=== PATIENT | female | born 1950 | race Two or more races ===

== ENCOUNTER 2017-12-12 11:26 | Inpatient (IN) | payer SELFPAY ==
[2017-12-12] VITALS (10 sets, daily range): BP systolic 111–123; BP diastolic 49–65
[~2017-12-12] VITALS: Ht 154.9 cm; Wt 62.1 kg
[2017-12-12] MEDS ORDERED: Cefepime HCl 1 GM in NS 55 ML IV STA (11:33)
[2017-12-12] MEDS ORDERED: CEPHALEXIN500 MG ORAL (11:41)
[2017-12-12] MEDS ORDERED: LISINOPRIL20 MG ORAL (11:41)
[2017-12-12] MEDS ORDERED: NORCO 5-325 TA1 EACH ORAL (11:41)
[2017-12-12] MEDS ORDERED: Vancomycin 1 GM in D5W 275 ML IVPB ONE (11:45)
[2017-12-12] MEDS ORDERED: Morphine Sulfate 4mg/ml Inj (IV/IM USE ONLY) IVP ONE (11:45)
[2017-12-12 12:14] LABS: BASOPHILS % (AUTO) 0.6 % (0.0-2.0); EOSINOPHILS % (AUTO) 1.1 % (0.0-3.0); HEMATOCRIT 38.1 % (37.0-47.0); HEMOGLOBIN 12.6 G/DL (12.0-16.0); LYMPHOCYTES % (AUTO) 15.2 % (20.0-45.0); MEAN CORPUSCULAR VOLUME 94 FL (80-99); MONOCYTES % (AUTO) 6.1 % (1.0-10.0); PLATELET COUNT 223 K/UL (150-450); RED BLOOD COUNT 4.06 M/UL (4.20-5.40); RED CELL DISTRIBUTION WIDTH 11.4 % (11.6-14.8); WHITE BLOOD COUNT 10.3 K/UL (4.8-10.8)
[2017-12-12] MEDS ORDERED: Succinylcholine 20mg/ml 10ml vial ONE (12:40)
[2017-12-12] MEDS ORDERED: fentaNYL 100 mcg/2 mL IV ONE (12:41)
[2017-12-12 12:42] LABS: ALANINE AMINOTRANSFERASE 188 U/L (12-78); ALBUMIN 3.4 G/DL (3.4-5.0); ALBUMIN/GLOBULIN RATIO 0.9 (1.0-2.7); ALKALINE PHOSPHATASE 129 U/L (46-116); ANION GAP 4 mmol/L (5-15); ASPARTATE AMINO TRANSFERASE 121 U/L (15-37); BILIRUBIN,TOTAL 1.7 MG/DL (0.2-1.0); BLOOD UREA NITROGEN 6 mg/dL (7-18); CALCIUM 8.9 MG/DL (8.5-10.1); CARBON DIOXIDE 30 MMOL/L (21-32); CHLORIDE 102 MMOL/L (98-107); CREATINE KINASE 420 U/L (26-308); CREATININE 0.7 MG/DL (0.55-1.30); POTASSIUM 4.3 MMOL/L (3.5-5.1); SODIUM 136 MMOL/L (136-145)
[2017-12-12 12:43] LABS: BILIRUBIN,DIRECT 0.3 MG/DL (0.0-0.3)
[2017-12-12] MEDS ORDERED: Lidocaine 1% 10mg/ml/Epi 0.005mg/ml 30ml vial INJ ONE (12:47)
[2017-12-12] MEDS ORDERED: Bacitracin 50000 Units Vial ONE (12:47)
[2017-12-12] MEDS ORDERED: Bacitracin Oint 15gm Tube TOPIC ONE (12:47)
--- NOTE | 2017-12-12 12:47 | Diagnostic Imaging Report ---
EXAM: XR Chest, 1 View CLINICAL HISTORY: Chest pain TECHNIQUE: Frontal view of the chest. COMPARISON: No relevant prior studies available. FINDINGS: Lungs: Low lung volumes, likely related to shallow inspiration. Mild linear/subsegmental atelectasis in the left lung base. The lungs otherwise appear clear without focal consolidation. Pleural space: Unremarkable. The costophrenic angles are sharp. No visible pneumothorax. Heart: Unremarkable. No cardiomegaly. Mediastinum: Unremarkable. Bones/joints: Unremarkable. Soft tissues: Radiodense safety pin overlies the soft tissues of the lateral left chest wall. Tubes, lines and devices: EKG leads overlie the thorax. IMPRESSION: 1. Low lung volumes, likely related to shallow inspiration. 2. Mild linear/subsegmental atelectasis in the left lung base.
[2017-12-12] MEDS ORDERED: Lacri-Lube Opth Oint 3.5gm ONE (13:32)
[2017-12-12] MEDS ORDERED: Gelfoam Absorbable 1gm powder pkt TOPIC ONE (13:52)
[2017-12-12] MEDS ORDERED: Thrombin 5000 units spray kit TOPIC ONE (13:52)
[2017-12-12] MEDS ORDERED: Lidocaine 1% MPF 10mg/ml 5ml ONE (14:07)
[2017-12-12] MEDS ORDERED: Phenylephrine 10mg/ml Vial ONE (14:07)
[2017-12-12] MEDS ORDERED: Zemuron 50mg/5ml Inj IV ONE (14:07)
[2017-12-12] MEDS ORDERED: Propofol 200mg/20ml IV ONE (14:07)
[2017-12-12] MEDS ORDERED: Metoclopramide 10mg/2ml Inj ONE (14:07)
[2017-12-12] MEDS ORDERED: Morphine Sulfate 10mg/ml Inj ONE (14:14)
[2017-12-12] MEDS ORDERED: Sterile Water For Irrig 2000ml IRRIG ONE (14:28)
--- NOTE | 2017-12-12 14:43 | Anethesia Preoperative Eval ---
Anesthesia Pre-op PMH/ROS General Date of Evaluation: Dec 12, 2017 Time of Evaluation: 12:30 - spoke with daughter Leann who translated the possible anesthetic related complication and possible ICU admission Anesthesiologist: flor ASA Score: ASA 3 Mallampati Score Class I : Soft palate, uvula, fauces, pillars visible Class II: Soft palate, uvula, fauces visible Class III: Soft palate, base of uvula visible Class IV: Only hard plate visible Mallampati Classification: Class IV Surgeon: dorie Diagnosis: hematoma of face and neck Surgical Procedure: evacuation of face and neck Anesthesia History: none Family History: no anesthesia problems Allergies: Coded Allergies: No Known Allergies (Unverified , 12/12/17) Medications: see eMAR Patient NPO?: No NPO Date: Dec 12, 2017 NPO Time: 09:00 Past Medical History Cardiovascular: Reports: HTN; Denies: CAD, UT, valve dz, arrhythmia, other Pulmonary: Denies: asthma, COPD, QIANA, other Gastrointestinal/Genitourinary: Denies: GERD, CRI, ESRD, other Neurologic/Psychiatric: Denies: dementia, CVA, depression/anxiety, TIA, other Endocrine: Denies: DM, hypothyroidism, steroids, other HEENT: Denies: cataract (L), cataract (R), glaucoma, C[place]BA (L), C[place]BA (R), other Hematology/Immune: Denies: anemia, DVT, bleeding disorder, other Musculoskeletal/Integumentary: Denies: OA, RA, DJD, DDD, edema, other PSxH Narrative: cosmetic procedure done 11/10/17 s/p swelling to neck and face; Anesthesia Pre-op Phys. Exam Physician Exam Last Vital Signs Date Time Temp Pulse Resp B/P (MAP) Pulse Ox O2 Delivery O2 Flow Rate FiO2 12/12/17 12:30 98.0 78 18 124/78 100 Room Air Constitutional: other - excruciating pain; difficulting breathing when lying flat Neurologic: CN 2-12 intact Cardiovascular: RRR Respiratory: CTA Gastrointestinal: S/NT/ND Airway Exam Mallampati Classification can not access; limited mouth opening Mallampati Score: Class III MO: limited Neck: thick TMD: 1fb ROM: limited Dentures: no upper, no lower Anesthesia Pre-op A/P Labs Hematology Test 12/12/17 11:50 White Blood Count 10.3 K/UL (4.8-10.8) Red Blood Count 4.06 M/UL (4.20-5.40) L Hemoglobin 12.6 G/DL (12.0-16.0) Hematocrit 38.1 % (37.0-47.0) Mean Corpuscular Volume 94 FL (80-99) Mean Corpuscular Hemoglobin 31.1 PG (27.0-31.0) H Mean Corpuscular Hemoglobin Concent 33.2 G/DL (32.0-36.0) Red Cell Distribution Width 11.4 % (11.6-14.8) L Platelet Count 223 K/UL (150-450) Mean Platelet Volume 8.4 FL (6.5-10.1) Neutrophils (%) (Auto) 77.0 % (45.0-75.0) H Lymphocytes (%) (Auto) 15.2 % (20.0-45.0) L Monocytes (%) (Auto) 6.1 % (1.0-10.0) Eosinophils (%) (Auto) 1.1 % (0.0-3.0) Basophils (%) (Auto) 0.6 % (0.0-2.0) Coagulation Test 12/12/17 11:50 Prothrombin Time 10.2 SEC (9.30-11.50) Prothromb Time International Ratio 1.0 (0.9-1.1) Activated Partial Thromboplast Time 24 SEC (23-33) Chemistry Test 12/12/17 11:50 Sodium Level 136 MMOL/L (136-145) Potassium Level 4.3 MMOL/L (3.5-5.1) Chloride Level 102 MMOL/L (98-107) Carbon Dioxide Level 30 MMOL/L (21-32) Anion Gap 4 mmol/L (5-15) L Blood Urea Nitrogen 6 mg/dL (7-18) L Creatinine 0.7 MG/DL (0.55-1.30) Estimat Glomerular Filtration Rate > 60 mL/min (>60) Glucose Level 115 MG/DL (74-106) H Lactic Acid Level 2.00 mmol/L (0.4-2.0) Calcium Level 8.9 MG/DL (8.5-10.1) Total Bilirubin 1.7 MG/DL (0.2-1.0) H Direct Bilirubin 0.3 MG/DL (0.0-0.3) Aspartate Amino Transf (AST/SGOT) 121 U/L (15-37) H Alanine Aminotransferase (ALT/SGPT) 188 U/L (12-78) H Alkaline Phosphatase 129 U/L (46-116) H Total Creatine Kinase 420 U/L (26-308) H Troponin I 0.000 ng/mL (0.000-0.056) Pro-B-Type Natriuretic Peptide 66 pg/mL (0-125) Total Protein 7.1 G/DL (6.4-8.2) Albumin 3.4 G/DL (3.4-5.0) Globulin 3.7 g/dL Albumin/Globulin Ratio 0.9 (1.0-2.7) L Studies Pre-op Studies: EKG - sr Risk Assessment & Plan Assessment: accompanied with daughter, pt is cannot open mouth, left eye is shut from swelling. facial and neck swelling noted. Plan: general - glidescope - will remain intubated post surgery Status Change Before Surgery: No Pre-Antibiotics Drug: ancef Given Within 1 Hr of Incision: Yes Time Given: 13:50 Dimple Johnson CRNA Dec 12, 2017 14:43
--- NOTE | 2017-12-12 15:07 | Emergency Room Report ---
History of Present Illness General Chief Complaint: General Complaint Source: Patient, Family Member Present Illness HPI Patient presents with facial swelling, fevers and drainage of pus from the drainage tubes. She had reconstructive surgery done yesterday. She's felt feverish. She also feels nauseated. The pain is significant - rated 10/10, sharp, pressure, some radiation to upper neck anteriorly. She'd followed-up with her surgeon today and he sent her to the emergency department in order to have a revision and drainage. The patient's tetanus is up-to-date. No dysuria, chest pain, cough, vomiting or diarrhea. Post menopausal. No joint pain. Denies DM or HTN. Allergies: Coded Allergies: No Known Allergies (Unverified , 12/12/17) Patient History Past Medical History: see triage record Past Surgical History: other - breast implants Social History: Denies: smoking Social History Narrative with daughter Now: No Reviewed Nursing Documentation: PMH: Agreed; PSxH: Agreed Nursing Documentation-PMH Hx Cardiac Problems: Yes - breast implants, face lift Hx Hypertension: Yes Physical Exam Vital Signs Date Time Temp Pulse Resp B/P (MAP) Pulse Ox O2 Delivery O2 Flow Rate FiO2 12/12/17 11:36 98.1 82 12 122/65 99 Room Air Sp02 EP Interpretation: reviewed, normal General Appearance: alert, GCS 15, mild distress Head: other - post surgical changes face with swelling more on L Eyes: bilateral eye PERRL, bilateral eye EOMI, bilateral eye Scleral Injection , bilateral eye other - scleral ecchymoses ENT: moist mucus membranes, other - drainage tubes bilat face Neck: tender - anteriorly, but able to nod Respiratory: chest non-tender, lungs clear, normal breath sounds Cardiovascular #1: regular rate, rhythm Cardiovascular #2: 2+ radial (L) Gastrointestinal: normal inspection, normal bowel sounds, non tender Genitourinary: no CVA tenderness Musculoskeletal: back normal, digits/nails normal, gait/station normal, normal range of motion Neurologic: alert, oriented x3, grossly normal - though facial nerves not tested Psychiatric: depressed affect Skin: hematoma - ecchymoses, erythema face and neck Medical Decision Making Diagnostic Impression: Primary Impression: Post-operative infection Qualified Codes: T81.4XXA - Infection following a procedure, initial encounter ER Course Patient post facial surgery with fever and drainage with facial swelling. DDx; infection, hematoma amongst others. Sent by surgeon for revision of operation. Lab evaluation and EKG with CXR. IV hydration and analgesia. Also antibiotics indicated. Improved with analgesia. EKG no injury. CXR some atelectasis. Labs with normal WBC, H/H. CMP with elevated LFTs. Patient admitted to Dr. Bejarano and taken to OR. Laboratory Tests Test 12/12/17 11:50 White Blood Count 10.3 K/UL (4.8-10.8) Red Blood Count 4.06 M/UL (4.20-5.40) L Hemoglobin 12.6 G/DL (12.0-16.0) Hematocrit 38.1 % (37.0-47.0) Mean Corpuscular Volume 94 FL (80-99) Mean Corpuscular Hemoglobin 31.1 PG (27.0-31.0) H Mean Corpuscular Hemoglobin Concent 33.2 G/DL (32.0-36.0) Red Cell Distribution Width 11.4 % (11.6-14.8) L Platelet Count 223 K/UL (150-450) Mean Platelet Volume 8.4 FL (6.5-10.1) Neutrophils (%) (Auto) 77.0 % (45.0-75.0) H Lymphocytes (%) (Auto) 15.2 % (20.0-45.0) L Monocytes (%) (Auto) 6.1 % (1.0-10.0) Eosinophils (%) (Auto) 1.1 % (0.0-3.0) Basophils (%) (Auto) 0.6 % (0.0-2.0) Prothrombin Time 10.2 SEC (9.30-11.50) Prothrombin Time INR 1.0 (0.9-1.1) PTT 24 SEC (23-33) Sodium Level 136 MMOL/L (136-145) Potassium Level 4.3 MMOL/L (3.5-5.1) Chloride Level 102 MMOL/L (98-107) Carbon Dioxide Level 30 MMOL/L (21-32) Anion Gap 4 mmol/L (5-15) L Blood Urea Nitrogen 6 mg/dL (7-18) L Creatinine 0.7 MG/DL (0.55-1.30) Estimate Glomerular Filtration Rate > 60 mL/min (>60) Glucose Level 115 MG/DL (74-106) H Lactic Acid Level 2.00 mmol/L (0.4-2.0) Calcium Level 8.9 MG/DL (8.5-10.1) Total Bilirubin 1.7 MG/DL (0.2-1.0) H Direct Bilirubin 0.3 MG/DL (0.0-0.3) Aspartate Amino Transferase (AST) 121 U/L (15-37) H Alanine Aminotransferase (ALT) 188 U/L (12-78) H Alkaline Phosphatase 129 U/L (46-116) H Total Creatine Kinase 420 U/L (26-308) H Troponin I 0.000 ng/mL (0.000-0.056) Pro-B-Type Natriuretic Peptide 66 pg/mL (0-125) Total Protein 7.1 G/DL (6.4-8.2) Albumin 3.4 G/DL (3.4-5.0) Globulin 3.7 g/dL Albumin/Globulin Ratio 0.9 (1.0-2.7) L EKG Diagnostic Results Rate: normal Rhythm: NSR ST Segments: no acute changes Rhythm Strip Diag. Results EP Interpretation: yes Rhythm: NSR, no PVC's, no ectopy Chest X-Ray Diagnostic Results Chest X-Ray Diagnostic Results : Chest X-Ray Ordered: Yes Indication: Other EP Interpretation: Yes Interpretation: no effusion, no pneumothorax, other - atelectasis Last Vital Signs Date Time Temp Pulse Resp B/P (MAP) Pulse Ox O2 Delivery O2 Flow Rate FiO2 18 12:30 98.0 78 18 124/78 100 Room Air Status: improved Disposition: ADMITTED INPATIENT Condition: Serious Referrals: NON PHYSICIAN (PCP) Jeison Phillips MD Dec 12, 2017 15:07
[2017-12-12] MEDS ORDERED: Hydromorphone 0.5mg/0.5ml inj IVP PRN (15:45)
[2017-12-12] MEDS ORDERED: HYDROmorphone 1mg/ml Carpuject IVP PRN (15:45)
[2017-12-12] MEDS ORDERED: Acetaminophen 650 MG SUPP RECTAL PRN (15:45)
--- NOTE | 2017-12-12 15:49 | Immediate Post-Op Evaluation ---
Immediate Post-Op Evalulation Immediate Post-Op Evalulation Procedure: evac of neck and face Date of Evaluation: Dec 12, 2017 Time of Evaluation: 15:45 IV Fluids: 600 Blood Products: 0 Estimated Blood Loss: 200 Urinary Output: 500 Blood Pressure Systolic: 113 Blood Pressure Diastolic: 61 Pulse Rate: 76 Respiratory Rate: 12 O2 Sat by Pulse Oximetry: 100 - 9 Temperature (Fahrenheit): 97.9 Nausea: No Vomiting: No Complications none Patient Status: ventilated - SIMV 50% 12 500 sating 100% Hydration Status: adequate Drug: ancef Given Within 1 Hr of Incision: Yes Time Given: 13:00 Dimple Johnson CRNA Dec 12, 2017 15:49
[2017-12-12] MEDS: LR 1000ml 1,000 ML IV SCH (16:49)
[2017-12-12] MEDS: ceFAZolin 2gm/50ml Premix 50 ML IV SCH (21:57)
[2017-12-13] VITALS (20 sets, daily range): BP systolic 92–114; BP diastolic 48–60
--- NOTE | 2017-12-13 03:30 | Operative Note - Dictated ---
DATE OF OPERATION: 12/12/2017 SURGEON: Jeison Henley M.D. PIPE COVERING MOLDER SURGEON: None. PREOPERATIVE DIAGNOSIS: Status post face-lift with current face and neck hematoma. POSTOPERATIVE DIAGNOSIS: Status post face-lift with current face and neck hematoma. OPERATION PERFORMED: Evacuation and irrigation of facial and neck hematoma. COMPLICATIONS: None. BLOOD LOSS: Approximately 150 mL of clotted blood. POSITION: Supine. ANESTHESIA: General. INDICATIONS: The patient was brought in yesterday in the outpatient surgical center for facial laxity, underwent face and neck lift, which was complicated by bleeding starting approximately 4 a.m. this morning. The patient was brought to [facility] for surgical evacuation of hematoma and control of bleeding. DESCRIPTION OF PROCEDURE: The patient was consented and brought to the operating room, underwent an orotracheal intubation. Face was prepped and draped in usual sterile fashion again by opening up the previous submental incision as well as bilateral auricular incisions. Once I opened, clotted blood was found within the subcutaneous face. This was extensively evacuated with both sterile water and saline solution. Following evacuation, there were 1 or 2 areas of venous bleeding that was noted and 1 area of a very small arterial bleeding near the left preauricular space. These were all controlled using Bovie cautery and then monitored for further bleeding, which was not seen. Following evacuation and irrigation, Tisseel solution was used to enhance bleeding control. At this point, the previous MADONNA drains were removed and two 15-[place] round MADONNA drains were placed each exiting postauricular and lying in the cheek and submental space. The face was then closed previously with 3-0 PDS suture, subcutaneous area 5-0 interrupted, 3-0 Monocryl in the deep dermal layer followed by running 6-0 nylon. The submental incision was closed using 3-0 interrupted Monocryl followed by running 6-0 nylon. At the end of the procedure, sponge and needle counts were correct x2. The patient was left intubated and transferred to the intensive care unit for overnight monitoring. Jeison Henley M.D. DR: KYAW JOB#: [id number] CC:
[2017-12-13] MEDS: LR 1000ml 1,000 ML IV SCH ×2 (05:00→17:39)
[2017-12-13] MEDS: ceFAZolin 2gm/50ml Premix 50 ML IV SCH ×3 (06:00→21:53)
[2017-12-13 06:06] LABS: ANION GAP 4 mmol/L (5-15); BLOOD UREA NITROGEN 9 mg/dL (7-18); CALCIUM 7.7 MG/DL (8.5-10.1); CARBON DIOXIDE 28 MMOL/L (21-32); CHLORIDE 104 MMOL/L (98-107); CREATININE 0.6 MG/DL (0.55-1.30); POTASSIUM 4.1 MMOL/L (3.5-5.1); SODIUM 136 MMOL/L (136-145)
[2017-12-13] MEDS ORDERED: Lisinopril 20mg tab ORAL SCH (09:00)
--- NOTE | 2017-12-13 09:54 | Pulmonolgy Critical Care Note ---
Critical Care - Asmt/Plan Problems: (1) Postoperative hematoma (2) Facial hematoma (3) Fever Respiratory: monitor respiratory rate, adjust FIO2 Cardiac: stop pressors, continue to monitor HR/BP Infectious Disease: check cultures, continue antibiotics Gastrointestinal: hold feedings Endocrine: monitor blood sugar Neurologic: PRN Ativan, keep patient comfortable Affect: PRN ativan Prophylaxis: Heparin Time Spent (Minutes): 40 Notes Reviewed: outside sales inspector Discussed with: nurses, consultants, employment case managerclassified advertising manager - Objective Last 24 Hour Vital Signs Date Time Temp Pulse Resp B/P (MAP) Pulse Ox O2 Delivery O2 Flow Rate FiO2 12/13/17 09:11 99.9 12/13/17 09:09 96 17 28 12/13/17 09:05 Nasal Cannula 2.0 28 12/13/17 09:05 109 29 28 12/13/17 09:00 77 14 114/56 (75) 99 12/13/17 08:55 83 14 30 12/13/17 08:39 112/56 12/13/17 08:00 30 12/13/17 08:00 Mechanical Ventilator 12/13/17 08:00 119 12/13/17 08:00 77 12 112/56 (74) 98 12/13/17 07:00 100.2 82 12 111/55 (73) 98 12/13/17 06:50 86 12 30 12/13/17 06:00 75 12 112/58 (76) 98 12/13/17 05:29 78 14 30 12/13/17 05:00 79 12 108/58 (75) 98 12/13/17 04:00 77 12/13/17 04:00 Mechanical Ventilator 12/13/17 04:00 30 12/13/17 04:00 99.2 79 12 100/52 (68) 98 12/13/17 03:00 79 12 94/52 (66) 98 12/13/17 02:30 81 12 30 12/13/17 02:00 82 12 95/52 (66) 98 12/13/17 01:29 83 12 30 12/13/17 01:00 87 12 95/57 (70) 98 12/13/17 00:00 85 12/13/17 00:00 Mechanical Ventilator 12/13/17 00:00 30 12/13/17 00:00 98.8 77 13 113/57 (75) 99 12/12/17 23:20 82 14 30 12/12/17 23:00 82 13 118/59 (78) 100 12/12/17 22:00 82 13 121/59 (79) 100 12/12/17 21:11 78 12 40 12/12/17 21:00 81 13 111/60 (77) 100 12/12/17 20:00 Mechanical Ventilator 12/12/17 20:00 40 12/12/17 20:00 99.0 83 13 120/64 (82) 100 12/12/17 19:34 82 12 40 12/12/17 19:00 81 12 123/63 (83) 100 12/12/17 18:00 77 12 113/65 (81) 100 12/12/17 17:00 73 12 114/60 (78) 100 12/12/17 16:30 76 12 50 12/12/17 16:14 72 12/12/17 16:00 Endotracheal Tube 12/12/17 16:00 73 13 117/49 (71) 100 12/12/17 15:49 76 12 100 12/12/17 15:44 75 12/12/17 15:40 97.9 74 13 113/61 (78) 100 12/12/17 15:40 50 12/12/17 12:30 98.0 78 18 124/78 100 Room Air 12/12/17 11:42 98.1 74 12 122/65 99 Room Air 12/12/17 11:42 82 12 Room Air 12/12/17 11:36 98.1 82 12 122/65 99 Room Air Status: awake Condition: critical HEENT: atraumatic Lungs: clear Heart: HR/BP stable Abdomen: soft, active bowel sounds Extremities: no C/C/E, edema Decubiti: location Critical Care - Subjective ROS Limited/Unobtainable: Yes ICU Day: 2 Interval Events: 67 year old female without any major PMHx presented to ER with facial swelling , fevers and drainage of pus from the drainage tubes. She had reconstructive surgery done one day earlier. She's felt feverish. She was diagnosed to have a facial hematoma and underwent surgical evacuation of hematoma. Pt is admitted to ICU for post op care. Condition: critical FI02: 28 Vent Support Breath Rate: 12 Vent Support Mode: IMV/SIMV Vent Tidal Volume: 500 Sputum Amount: Small PEEP: 0.0 PIP: 21 I&O: Intake and Output 12/12/17 12/13/17 19:00 07:00 Intake Total 167 ml 925 ml Output Total 350 ml 940 ml Balance -183 ml -15 ml Intake Oral 0 ml IV Total 167 ml 925 ml Output Urine Total 330 ml 920 ml Drainage Total 20 ml 20 ml ET-Tube: 6.5 ET Position: 23 Patel Lagunas MD Dec 13, 2017 09:54
--- NOTE | 2017-12-13 10:34 | 48 Hour Post Anesthesia Eval ---
Post Anesthesia Evaluation Procedure: evac of neck and face Date of Evaluation: Dec 13, 2017 Time of Evaluation: 10:32 Blood Pressure Systolic: 101 0: 50 Pulse Rate: 70 Respiratory Rate: 14 O2 Sat by Pulse Oximetry: 98 Airway: patent - extubated and vitals stable Nausea: No Vomiting: No Hydration Status: adequate Cardiopulmonary Status: stable Mental Status/LOC: patient returned to baseline Follow-up Care/Observations: na Post-Anesthesia Complications: none Follow-up care needed: N/A Dimple Johnson CHIEF JUVENILE PROBATION OFFICER Dec 13, 2017 10:34
--- NOTE | 2017-12-13 11:02 | Consultation ---
Consult Note Consult Note # [id number] Hayes Seaman MD Dec 13, 2017 11:02
--- NOTE | 2017-12-13 12:04 | General Progress Note ---
Assessment/Plan Status Narrative s/p evacuation of face and neck hematoms- extubated this AM. awake and alert Assessment/Plan transfer to med/surg floor. continu ancef start diet- adv as tolerates HL IV once tolerating PO's keep HOB> 30 degreesa ambulate TID Incentive spirometer 10/hr Subjective Date patient seen: Dec 13, 2017 Time patient seen: 12:00 ROS Limited/Unobtainable: No Constitutional: Denies: no symptoms, chills, diaphoresis, fever, malaise, weakness, other HEENT: Denies: no symptoms, eye pain, blurred vision, tearing, double vision, ear pain, ear discharge, nose pain, nose congestion, throat pain, throat swelling, mouth pain, mouth swelling, other Cardiovascular: Denies: no symptoms, chest pain, edema, irregular heart rate, lightheadedness, palpitations, syncope, other Respiratory: Denies: no symptoms, cough, orthopnea, shortness of breath, SOB with excertion, SOB at rest, sputum, stridor, wheezing, other Gastrointestinal/Abdominal: Denies: no symptoms, abdomen distended, abdominal pain, black stools, tarry stools, blood in stool, constipated, diarrhea, difficulty swallowing, nausea, poor appetite, poor fluid intake, rectal bleeding , vomiting, other Genitourinary: Denies: no symptoms, burning, discharge, frequency, flank pain, hematuria, incontinence, pain, urgency, other Neurologic/Psychiatric: Denies: no symptoms, anxiety, depressed, emotional problems, headache, numbness, paresthesia, pre-existing deficit, seizure, tingling, tremors, weakness, other Endocrine: Denies: no symptoms, excessive sweating, flushing, intolerance to cold, intolerance to heat, increased hunger, increased thirst, increased urine, unexplained weight gain, unexplained weight loss, other Hematologic/Lymphatic: Denies: no symptoms, anemia, easy bleeding, easy bruising, other Allergies: Coded Allergies: No Known Allergies (Unverified , 12/12/17) All Systems: reviewed and negative except above Subjective feeling much better Objective Last 24 Hour Vital Signs Date Time Temp Pulse Resp B/P (MAP) Pulse Ox O2 Delivery O2 Flow Rate FiO2 12/13/17 10:34 70 14 98 12/13/17 10:00 74 12 101/55 (70) 100 12/13/17 09:11 99.9 12/13/17 09:09 96 17 28 12/13/17 09:05 Nasal Cannula 2.0 28 12/13/17 09:05 109 29 28 12/13/17 09:00 77 14 114/56 (75) 99 12/13/17 08:55 83 14 30 12/13/17 08:39 112/56 12/13/17 08:00 30 12/13/17 08:00 Mechanical Ventilator 12/13/17 08:00 119 12/13/17 08:00 77 12 112/56 (74) 98 12/13/17 07:00 100.2 82 12 111/55 (73) 98 12/13/17 06:50 86 12 30 12/13/17 06:00 75 12 112/58 (76) 98 12/13/17 05:29 78 14 30 12/13/17 05:00 79 12 108/58 (75) 98 12/13/17 04:00 77 12/13/17 04:00 Mechanical Ventilator 12/13/17 04:00 30 12/13/17 04:00 99.2 79 12 100/52 (68) 98 12/13/17 03:00 79 12 94/52 (66) 98 12/13/17 02:30 81 12 30 12/13/17 02:00 82 12 95/52 (66) 98 12/13/17 01:29 83 12 30 12/13/17 01:00 87 12 95/57 (70) 98 12/13/17 00:00 85 12/13/17 00:00 Mechanical Ventilator 12/13/17 00:00 30 12/13/17 00:00 98.8 77 13 113/57 (75) 99 12/12/17 23:20 82 14 30 12/12/17 23:00 82 13 118/59 (78) 100 12/12/17 22:00 82 13 121/59 (79) 100 12/12/17 21:11 78 12 40 12/12/17 21:00 81 13 111/60 (77) 100 12/12/17 20:00 Mechanical Ventilator 12/12/17 20:00 40 12/12/17 20:00 99.0 83 13 120/64 (82) 100 12/12/17 19:34 82 12 40 12/12/17 19:00 81 12 123/63 (83) 100 12/12/17 18:00 77 12 113/65 (81) 100 12/12/17 17:00 73 12 114/60 (78) 100 12/12/17 16:30 76 12 50 12/12/17 16:14 72 12/12/17 16:00 Endotracheal Tube 12/12/17 16:00 73 13 117/49 (71) 100 12/12/17 15:49 76 12 100 12/12/17 15:44 75 12/12/17 15:40 97.9 74 13 113/61 (78) 100 12/12/17 15:40 50 12/12/17 12:30 98.0 78 18 124/78 100 Room Air Intake and Output 12/12/17 12/13/17 18:59 06:59 Intake Total 92 ml 925 ml Output Total 340 ml 900 ml Balance -248 ml 25 ml Intake Oral 0 ml IV Total 92 ml 925 ml Output Urine Total 320 ml 880 ml Drainage Total 20 ml 20 ml Laboratory Tests 12/13/17 05:25: Prothrombin Time 10.6, Prothromb Time International Ratio 1.0, Activated Partial Thromboplast Time 24, Sodium Level 136, Potassium Level 4.1, Chloride Level 104, Carbon Dioxide Level 28, Anion Gap 4L, Blood Urea Nitrogen 9, Creatinine 0.6, Estimat Glomerular Filtration Rate > 60, Glucose Level 105, Calcium Level 7.7L Height (Feet): 5 Height (Inches): 1.00 Weight (Pounds): 138 General Appearance: WD/WN EENT: PERRL/EOMI Neck: non-tender Cardiovascular: normal peripheral pulses Respiratory/Chest: chest wall non-tender Abdomen: normal bowel sounds Pelvis: normal external exam Genitourinary/Rectal: normal genital exam Extremities: normal range of motion Neurologic: machine woodworking sander II-XII grossly normal Skin: normal pigmentation Objective s/p evacuation of face and neck hematoma-no hematoma present this AM. JPs with s /s output minimal. facial skin with eccymosis and swelling but much improved over yesterday. all incisions C/D/I Jeison Henley MD Dec 13, 2017 12:04
[2017-12-13 16:26] LABS: BASOPHILS % (AUTO) 0.6 % (0.0-2.0); EOSINOPHILS % (AUTO) 2.5 % (0.0-3.0); HEMATOCRIT 27.2 % (37.0-47.0); HEMOGLOBIN 9.7 G/DL (12.0-16.0); LYMPHOCYTES % (AUTO) 25.2 % (20.0-45.0); MEAN CORPUSCULAR VOLUME 96 FL (80-99); MONOCYTES % (AUTO) 7.9 % (1.0-10.0); NEUTROPHILS % (AUTO) 63.7 % (45.0-75.0); PLATELET COUNT 159 K/UL (150-450); RED BLOOD COUNT 2.85 M/UL (4.20-5.40); WHITE BLOOD COUNT 11.5 K/UL (4.8-10.8)
[2017-12-13] MEDS ORDERED: LR 1000ml 1,000 ML IV SCH ×2 (16:45→17:00)
[2017-12-13] MEDS ORDERED: Acetaminophen 650 MG SUPP RECTAL PRN ×3 (17:00→19:45)
[2017-12-13] MEDS ORDERED: HYDROmorphone 1mg/ml Carpuject IVP PRN ×2 (17:00→21:45)
[2017-12-13] MEDS ORDERED: Hydromorphone 0.5mg/0.5ml inj IVP PRN ×2 (17:00→21:45)
[2017-12-13] MEDS: Hydromorphone 0.5mg/0.5ml inj IVP PRN (17:40)
[2017-12-13] MEDS ORDERED: LR 1000ml ONE (18:08)
[2017-12-13] MEDS ORDERED: Tubing IV Secondary IV ONE (18:08)
--- NOTE | 2017-12-13 19:00 | Consultation ---
DATE OF CONSULTATION: 12/13/2017 INFECTIOUS DISEASES CONSULTATION CONSULTING PHYSICIAN: Hayes Seaman M.D. REFERRING PHYSICIAN: Shyam Bejarano D.O. REASON FOR CONSULTATION: For possible facial abscess, surgical site infection. HISTORY OF PRESENT ILLNESS: The patient is a 67-year-old female, who came to the hospital with facial swelling. Reportedly, the patient has some purulent discharge from the tubes. She had a surgery the day before admission, face-lift. Subsequent to that, apparently the patient developed hematoma, was admitted, and underwent evacuation. Postop, the patient had low-grade fever of 100.2. The patient had IV antibiotics. Infectious Disease consultation has been requested for further evaluation of the patient and antibiotic management. PAST MEDICAL HISTORY: Hypertension, history of breast implant, and face-lift. ALLERGIES: No known drug allergies. SOCIAL HISTORY: Unremarkable. MEDICATIONS: On IV Ancef. PHYSICAL EXAMINATION: VITAL SIGNS: Temperature 99.9, T-max 100.2, blood pressure 101/55, pulse 86, respiratory rate 18. HEENT: No pale conjunctivae. No icterus. Head covered by dressing. MADONNA drains are with drainage. CHEST: Coarse breathing sounds. HEART: S1 and S2. ABDOMEN: Soft, nontender. EXTREMITIES: No cyanosis at this time. NEUROLOGIC: Awake. LABORATORY AND DIAGNOSTIC DATA: White blood cell 10.3, hemoglobin 12, platelets 223,000. BUN 9, creatinine 0.6. AST 121, ALT 188, alkaline phosphatase 129. Chest x-ray, low lung volumes. Blood culture is pending. ASSESSMENT: 1. The patient is a 67-year-old female with normal white blood cells. 2. Status post low-grade fever postop. 3. Transaminitis (rule out probable chronic hepatitis). 4. There is a report of purulent discharge from MADONNA drain, but this is less likely in view of very recent surgery, less likely to be local infection which . PLAN: 1. We will continue the patient on IV Ancef for now. 2. Monitor CBC. 3. Monitor BMP. 4. Monitor cultures (operative note does not mention evidence of abscess, just hematoma). 5. Hepatitis panel. 6. Monitor liver function tests. 7. Based on the patient's clinical course and laboratories, we will do further recommendation. Hayes Seaman M.D. DR: Jess JOB#: [id number] CC:
[2017-12-13] MEDS ORDERED: ceFAZolin 2gm/50ml Premix 50 ML IV SCH ×2 (22:00)
--- NOTE | 2017-12-13 22:15 | History and Physical Report ---
DATE OF ADMISSION: 12/12/2017 CONSULTANTS: 1. Jeison Henley M.D. 2. Patel Lagunas M.D. 3. Hayes Seaman M.D. CHIEF COMPLAINT: Right facial cellulitis status post facelift. BRIEF HISTORY: This is a 67-year-old female, who lives at home, last week had a facelift done. Apparently, the face started swelling up. The patient came to [facility] last night with the right facial swelling, diagnosed with right facial cellulitis, and went to surgery with Dr. Henley. Currently, status post incision and drainage placed in place. The patient is placed in ICU. Currently, calm in bed. No complaint. No chest pain. No shortness of breath. No nausea, vomiting, or diarrhea. PAST MEDICAL HISTORY: Hypertension. PAST SURGICAL HISTORY: Spinal surgery and recent facelift. MEDICATIONS: Include Prinivil, cefazolin, , Dilaudid, Tylenol, and Reglan. ALLERGIES: Denies. SOCIAL HISTORY: No smoking. No alcohol. No intravenous drug abuse. FAMILY HISTORY: Noncontributory. PHYSICAL EXAMINATION: GENERAL: Calm in bed, lethargic, oriented x2, and in no acute distress. VITAL SIGNS: Temperature 99, pulse 79, respirations 12, and blood pressure 100/52. CARDIOVASCULAR: No murmurs. LUNGS: Distant and clear. ABDOMEN: Bowel sounds positive. Nontender. Nondistended. EXTREMITIES: No cyanosis, clubbing, or edema. Facial exam show bilateral face slightly swollen with drainage of a viscous red fluid in the draining bulb. Dressing clean and dry. NEUROLOGIC: The patient moves all extremities, slightly weak. LABORATORY AND DIAGNOSTIC DATA: Labs, at this time, show CBC is normal. BMP is normal. INR is 1.0. PTT is 24. ASSESSMENT: 1. Right facial cellulitis status post drainage and facelift. 2. Hypertension. PLAN: 1. Blood pressure and pain control. 2. Dietary followup. 3. Surgery followup. 4. Discharge if cleared by surgeon. Shyam Bejarano D.O. DR: GAIL JOB#: [id number] CC:
[2017-12-13] MEDS: HYDROmorphone 1mg/ml Carpuject IVP PRN (22:54)
[2017-12-14] MEDS: Hydromorphone 0.5mg/0.5ml inj IVP PRN (03:54)
[2017-12-14 04:17] VITALS: BP 127/65
[2017-12-14] MEDS: LR 1000ml 1,000 ML IV SCH (05:48)
[2017-12-14] MEDS: ceFAZolin 2gm/50ml Premix 50 ML IV SCH ×3 (05:49→22:35)
[2017-12-14 07:56] LABS: BASOPHILS % (AUTO) 0.5 % (0.0-2.0); EOSINOPHILS % (AUTO) 3.3 % (0.0-3.0); HEMATOCRIT 28.2 % (37.0-47.0); HEMOGLOBIN 9.5 G/DL (12.0-16.0); MEAN CORPUSCULAR VOLUME 95 FL (80-99); MONOCYTES % (AUTO) 7.8 % (1.0-10.0); NEUTROPHILS % (AUTO) 68.4 % (45.0-75.0); PLATELET COUNT 157 K/UL (150-450); RED BLOOD COUNT 2.96 M/UL (4.20-5.40); RED CELL DISTRIBUTION WIDTH 11.1 % (11.6-14.8)
[2017-12-14] MEDS: Lisinopril 20mg tab ORAL SCH (08:06)
[2017-12-14] MEDS: Docusate 100mg cap ORAL SCH ×3 (08:06→17:55)
[2017-12-14] MEDS: HYDROmorphone 1mg/ml Carpuject IVP PRN (08:07)
[2017-12-14 08:09] VITALS: BP 128/69
[2017-12-14 08:15] LABS: ALANINE AMINOTRANSFERASE 75 U/L (12-78); ALBUMIN 2.8 G/DL (3.4-5.0); ALBUMIN/GLOBULIN RATIO 0.8 (1.0-2.7); ALKALINE PHOSPHATASE 116 U/L (46-116); ANION GAP 7 mmol/L (5-15); ASPARTATE AMINO TRANSFERASE 36 U/L (15-37); BILIRUBIN,TOTAL 0.7 MG/DL (0.2-1.0); BLOOD UREA NITROGEN 11 mg/dL (7-18); CALCIUM 8.1 MG/DL (8.5-10.1); CARBON DIOXIDE 27 MMOL/L (21-32); CHLORIDE 104 MMOL/L (98-107); CREATININE 0.6 MG/DL (0.55-1.30); PHOSPHORUS 2.4 MG/DL (2.5-4.9); POTASSIUM 3.3 MMOL/L (3.5-5.1); SODIUM 138 MMOL/L (136-145)
[2017-12-14 08:25] LABS: ALANINE AMINOTRANSFERASE 79 U/L (12-78); ALBUMIN 2.8 G/DL (3.4-5.0); ALKALINE PHOSPHATASE 121 U/L (46-116); ASPARTATE AMINO TRANSFERASE 38 U/L (15-37); BILIRUBIN,DIRECT 0.1 MG/DL (0.0-0.3); BILIRUBIN,TOTAL 0.7 MG/DL (0.2-1.0)
--- NOTE | 2017-12-14 08:25 | Cardiology Report ---
APPROVED REPORT EKG Measurement Heart [id number] Normal sinus rhythm Normal ECG
[2017-12-14] MEDS ORDERED: Lisinopril 20mg tab ORAL SCH ×2 (09:00)
--- NOTE | 2017-12-14 09:55 | Pulmonology Progress Note ---
Assessment/Plan Problems: (1) Post-operative infection (2) Fever (3) Postoperative hematoma Assessment/Plan check cultures continue abx symptomatic treatment check electrolytes dvt prophylaxis Subjective ROS Limited/Unobtainable: No Interval Events: doing better Allergies: Coded Allergies: No Known Allergies (Unverified , 12/12/17) Objective Last 24 Hour Vital Signs Date Time Temp Pulse Resp B/P (MAP) Pulse Ox O2 Delivery O2 Flow Rate FiO2 12/14/17 08:12 Room Air 12/14/17 08:09 100.1 82 18 128/69 (88) 12/14/17 08:06 128/69 12/14/17 04:17 99.2 80 18 127/65 (85) 96 12/13/17 23:53 98.9 72 18 98/57 (71) 94 12/13/17 21:00 Room Air 12/13/17 20:41 99.4 72 16 97/48 (64) 97 12/13/17 18:10 99.4 12/13/17 17:00 99.8 84 18 106/59 (75) 95 12/13/17 16:00 75 17 110/52 (71) 96 12/13/17 16:00 73 12/13/17 16:00 Room Air Room Air 12/13/17 15:00 70 16 102/60 (74) 96 12/13/17 14:00 73 18 106/54 (71) 96 12/13/17 13:00 78 20 98/56 (70) 98 12/13/17 12:00 Room Air Room Air 12/13/17 12:00 80 12/13/17 12:00 99.4 79 12 100/52 (68) 98 12/13/17 11:17 99.4 12/13/17 11:00 74 21 92/52 (65) 96 12/13/17 10:34 70 14 98 12/13/17 10:00 74 12 101/55 (70) 100 Intake and Output 12/13/17 12/14/17 19:00 07:00 Intake Total 950 ml 1122.5 ml Output Total 1503 ml 1210 ml Balance -553 ml -87.5 ml Intake Oral 360 ml IV Total 950 ml 762.5 ml Output Urine Total 1480 ml 1200 ml Drainage Total 23 ml 10 ml # Voids 1 General Appearance: WD/WN HEENT: normocephalic, atraumatic Respiratory/Chest: chest wall non-tender, lungs clear Cardiovascular: normal peripheral pulses, regular rhythm Abdomen: normal bowel sounds, no organomegaly Genitourinary: normal external genitalia Extremities: no cyanosis Skin: no rash Microbiology Date/Time Source Procedure Growth Status 12/12/17 12:00 Blood Blood Culture - Preliminary NO GROWTH AFTER 24 HOURS Resulted 12/12/17 11:50 Blood Blood Culture - Preliminary NO GROWTH AFTER 24 HOURS Resulted Laboratory Tests 12/13/17 15:45: White Blood Count 11.5H, Red Blood Count 2.85L, Hemoglobin 9.7L, Hematocrit 27.2L, Mean Corpuscular Volume 96, Mean Corpuscular Hemoglobin 34.1H, Mean Corpuscular Hemoglobin Concent 35.7, Red Cell Distribution Width 11.0L, Platelet Count 159, Mean Platelet Volume 7.9, Neutrophils (%) (Auto) 63.7, Lymphocytes (%) (Auto) 25.2, Monocytes (%) (Auto) 7.9, Eosinophils (%) (Auto) 2.5, Basophils (%) (Auto) 0.6 12/14/17 06:45: White Blood Count 11.0H, Red Blood Count 2.96L, Hemoglobin 9.5L, Hematocrit 28.2L, Mean Corpuscular Volume 95, Mean Corpuscular Hemoglobin 32.2H, Mean Corpuscular Hemoglobin Concent 33.8, Red Cell Distribution Width 11.1L, Platelet Count 157, Mean Platelet Volume 7.7, Neutrophils (%) (Auto) 68.4, Lymphocytes (%) (Auto) 20.0, Monocytes (%) (Auto) 7.8, Eosinophils (%) (Auto) 3.3H, Basophils (%) (Auto) 0.5, Erythrocyte Sedimentation Rate 63H, Sodium Level 138, Potassium Level 3.3L, Chloride Level 104, Carbon Dioxide Level 27, Anion Gap 7, Blood Urea Nitrogen 11, Creatinine 0.6, Estimat Glomerular Filtration Rate > 60, Glucose Level 87, Calcium Level 8.1L, Phosphorus Level 2.4L, Magnesium Level 1.7L, Total Bilirubin 0.7, Direct Bilirubin 0.1, Aspartate Amino Transf (AST/SGOT) 38H, Alanine Aminotransferase (ALT/SGPT) 79H, Alkaline Phosphatase 121H, C-Reactive Protein, Quantitative 2.9H, Total Protein 5.9L, Albumin 2.8L, Globulin 3.5, Albumin/Globulin Ratio 0.8L, Hepatitis A IgM Antibody [Pending], Hepatitis B Surface Antigen [Pending], Hepatitis B Core IgM Antibody [Pending], Hepatitis C Antibody [Pending] Current Medications Medications (Trade) Dose Ordered Sig/Briseida Route PRN Reason Start Time Stop Time Status Last Admin Dose Admin Acetaminophen (Tylenol) 650 mg Q4H PRN RECTAL Mild Pain/Temp > 100.5 12/13/17 17:00 01/11/18 16:59 Bisacodyl (Dulcolax) 10 mg DAILYPRN PRN RECTAL Constipation 12/13/17 19:45 01/12/18 19:44 Cefazolin Sodium 50 ml @ 100 mls/hr Q8HR IV 12/13/17 22:00 12/19/17 21:59 12/14/17 05:49 Docusate Sodium (Colace) 100 mg THREE TIMES A DAY ORAL 12/14/17 09:00 01/13/18 08:59 12/14/17 08:06 Hydromorphone HCl (Dilaudid) 0.5 mg Q6H PRN IVP Moderate Pain (Pain Scale 4-6) 12/13/17 17:00 12/19/17 16:59 12/14/17 03:54 Hydromorphone HCl (Dilaudid) 1 mg Q6H PRN IVP Severe Pain (Pain Scale 7-10) 12/13/17 17:00 12/19/17 16:59 12/14/17 08:07 Lactated Ringer's 1,000 ml @ 75 mls/hr [id number] IV 12/13/17 17:00 01/11/18 16:59 12/14/17 05:48 Lisinopril (Prinivil) 20 mg DAILY ORAL 12/14/17 09:00 01/12/18 08:59 12/14/17 08:06 Patel Lagunas MD Dec 14, 2017 09:55
--- NOTE | 2017-12-14 10:01 | Infectious Diseases Prog Note ---
Assessment/Plan Assessment/Plan ASSESSMENT: The patient is a 67-year-old female with Low grade fever nl WBC Transaminitis (rule out probable chronic hepatitis) sp Facial hematoma as per PlSx,: no evid. of infection Hypertension history of breast implant Sp Face-lift PLAN: continue the patient on IV Ancef d# 3 for now Monitor CBC Monitor BMP. 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 CXR Subjective Allergies: Coded Allergies: No Known Allergies (Unverified , 12/12/17) Subjective comfortably Objective Vital Signs Last 24 Hour Vital Signs Date Time Temp Pulse Resp B/P (MAP) Pulse Ox O2 Delivery O2 Flow Rate FiO2 12/14/17 08:12 Room Air 12/14/17 08:09 100.1 82 18 128/69 (88) 12/14/17 08:06 128/69 12/14/17 04:17 99.2 80 18 127/65 (85) 96 12/13/17 23:53 98.9 72 18 98/57 (71) 94 12/13/17 21:00 Room Air 12/13/17 20:41 99.4 72 16 97/48 (64) 97 12/13/17 18:10 99.4 12/13/17 17:00 99.8 84 18 106/59 (75) 95 12/13/17 16:00 75 17 110/52 (71) 96 12/13/17 16:00 73 12/13/17 16:00 Room Air Room Air 12/13/17 15:00 70 16 102/60 (74) 96 12/13/17 14:00 73 18 106/54 (71) 96 12/13/17 13:00 78 20 98/56 (70) 98 12/13/17 12:00 Room Air Room Air 12/13/17 12:00 80 12/13/17 12:00 99.4 79 12 100/52 (68) 98 12/13/17 11:17 99.4 12/13/17 11:00 74 21 92/52 (65) 96 12/13/17 10:34 70 14 98 12/13/17 10:00 74 12 101/55 (70) 100 Height (Feet): 5 Height (Inches): 1.00 Weight (Pounds): 136 HEENT: anicteric Respiratory/Chest: no respiratory distress Cardiovascular: regular rhythm Abdomen: no organomegaly Microbiology Date/Time Source Procedure Growth Status 12/12/17 12:00 Blood Blood Culture - Preliminary NO GROWTH AFTER 24 HOURS Resulted 12/12/17 11:50 Blood Blood Culture - Preliminary NO GROWTH AFTER 24 HOURS Resulted Laboratory Tests Test 12/13/17 15:45 12/14/17 06:45 White Blood Count 11.5 K/UL (4.8-10.8) H 11.0 K/UL (4.8-10.8) H Red Blood Count 2.85 M/UL (4.20-5.40) L 2.96 M/UL (4.20-5.40) L Hemoglobin 9.7 G/DL (12.0-16.0) L 9.5 G/DL (12.0-16.0) L Hematocrit 27.2 % (37.0-47.0) L 28.2 % (37.0-47.0) L Mean Corpuscular Volume 96 FL (80-99) 95 FL (80-99) Mean Corpuscular Hemoglobin 34.1 PG (27.0-31.0) H 32.2 PG (27.0-31.0) H Mean Corpuscular Hemoglobin Concent 35.7 G/DL (32.0-36.0) 33.8 G/DL (32.0-36.0) Red Cell Distribution Width 11.0 % (11.6-14.8) L 11.1 % (11.6-14.8) L Platelet Count 159 K/UL (150-450) 157 K/UL (150-450) Mean Platelet Volume 7.9 FL (6.5-10.1) 7.7 FL (6.5-10.1) Neutrophils (%) (Auto) 63.7 % (45.0-75.0) 68.4 % (45.0-75.0) Lymphocytes (%) (Auto) 25.2 % (20.0-45.0) 20.0 % (20.0-45.0) Monocytes (%) (Auto) 7.9 % (1.0-10.0) 7.8 % (1.0-10.0) Eosinophils (%) (Auto) 2.5 % (0.0-3.0) 3.3 % (0.0-3.0) H Basophils (%) (Auto) 0.6 % (0.0-2.0) 0.5 % (0.0-2.0) Erythrocyte Sedimentation Rate 63 MM/HR (0-30) H Sodium Level 138 MMOL/L (136-145) Potassium Level 3.3 MMOL/L (3.5-5.1) L Chloride Level 104 MMOL/L (98-107) Carbon Dioxide Level 27 MMOL/L (21-32) Anion Gap 7 mmol/L (5-15) Blood Urea Nitrogen 11 mg/dL (7-18) Creatinine 0.6 MG/DL (0.55-1.30) Estimat Glomerular Filtration Rate > 60 mL/min (>60) Glucose Level 87 MG/DL (74-106) Calcium Level 8.1 MG/DL (8.5-10.1) L Phosphorus Level 2.4 MG/DL (2.5-4.9) L Magnesium Level 1.7 MG/DL (1.8-2.4) L Total Bilirubin 0.7 MG/DL (0.2-1.0) Direct Bilirubin 0.1 MG/DL (0.0-0.3) Aspartate Amino Transf (AST/SGOT) 38 U/L (15-37) H Alanine Aminotransferase (ALT/SGPT) 79 U/L (12-78) H Alkaline Phosphatase 121 U/L (46-116) H C-Reactive Protein, Quantitative 2.9 mg/dL (0.00-0.90) H Total Protein 5.9 G/DL (6.4-8.2) L Albumin 2.8 G/DL (3.4-5.0) L Globulin 3.5 g/dL Albumin/Globulin Ratio 0.8 (1.0-2.7) L Hepatitis A IgM Antibody Pending Hepatitis B Surface Antigen Pending Hepatitis B Core IgM Antibody Pending Hepatitis C Antibody Pending Current Medications Medications (Trade) Dose Ordered Sig/Briseida Route PRN Reason Start Time Stop Time Status Last Admin Dose Admin Acetaminophen (Tylenol) 650 mg Q4H PRN RECTAL Mild Pain/Temp > 100.5 12/13/17 17:00 01/11/18 16:59 Bisacodyl (Dulcolax) 10 mg DAILYPRN PRN RECTAL Constipation 12/13/17 19:45 01/12/18 19:44 Cefazolin Sodium 50 ml @ 100 mls/hr Q8HR IV 12/13/17 22:00 12/19/17 21:59 12/14/17 05:49 Docusate Sodium (Colace) 100 mg THREE TIMES A DAY ORAL 12/14/17 09:00 01/13/18 08:59 12/14/17 08:06 Hydromorphone HCl (Dilaudid) 0.5 mg Q6H PRN IVP Moderate Pain (Pain Scale 4-6) 12/13/17 17:00 12/19/17 16:59 12/14/17 03:54 Hydromorphone HCl (Dilaudid) 1 mg Q6H PRN IVP Severe Pain (Pain Scale 7-10) 12/13/17 17:00 12/19/17 16:59 12/14/17 08:07 Lactated Ringer's 1,000 ml @ 75 mls/hr [id number] IV 12/13/17 17:00 01/11/18 16:59 12/14/17 05:48 Lisinopril (Prinivil) 20 mg DAILY ORAL 12/14/17 09:00 01/12/18 08:59 12/14/17 08:06 Hayes Seaman MD Dec 14, 2017 10:01
--- NOTE | 2017-12-14 10:29 | General Progress Note ---
Assessment/Plan Status Narrative s/p evacuation of hematoma following facelift Assessment/Plan discharge home pt to f/u with me pt has all meds Rx Subjective Date patient seen: Dec 14, 2017 ROS Limited/Unobtainable: No Constitutional: Denies: no symptoms, chills, diaphoresis, fever, malaise, weakness, other HEENT: Denies: no symptoms, eye pain, blurred vision, tearing, double vision, ear pain, ear discharge, nose pain, nose congestion, throat pain, throat swelling, mouth pain, mouth swelling, other Cardiovascular: Denies: no symptoms, chest pain, edema, irregular heart rate, lightheadedness, palpitations, syncope, other Respiratory: Denies: no symptoms, cough, orthopnea, shortness of breath, SOB with excertion, SOB at rest, sputum, stridor, wheezing, other Gastrointestinal/Abdominal: Denies: no symptoms, abdomen distended, abdominal pain, black stools, tarry stools, blood in stool, constipated, diarrhea, difficulty swallowing, nausea, poor appetite, poor fluid intake, rectal bleeding , vomiting, other Genitourinary: Denies: no symptoms, burning, discharge, frequency, flank pain, hematuria, incontinence, pain, urgency, other Neurologic/Psychiatric: Denies: no symptoms, anxiety, depressed, emotional problems, headache, numbness, paresthesia, pre-existing deficit, seizure, tingling, tremors, weakness, other Endocrine: Denies: no symptoms, excessive sweating, flushing, intolerance to cold, intolerance to heat, increased hunger, increased thirst, increased urine, unexplained weight gain, unexplained weight loss, other Hematologic/Lymphatic: Denies: no symptoms, anemia, easy bleeding, easy bruising, other Allergies: Coded Allergies: No Known Allergies (Unverified , 12/12/17) Subjective feeling much better Objective Last 24 Hour Vital Signs Date Time Temp Pulse Resp B/P (MAP) Pulse Ox O2 Delivery O2 Flow Rate FiO2 12/14/17 08:12 Room Air 12/14/17 08:09 100.1 82 18 128/69 (88) 12/14/17 08:06 128/69 12/14/17 04:17 99.2 80 18 127/65 (85) 96 12/13/17 23:53 98.9 72 18 98/57 (71) 94 12/13/17 21:00 Room Air 12/13/17 20:41 99.4 72 16 97/48 (64) 97 12/13/17 18:10 99.4 12/13/17 17:00 99.8 84 18 106/59 (75) 95 12/13/17 16:00 75 17 110/52 (71) 96 12/13/17 16:00 73 12/13/17 16:00 Room Air Room Air 12/13/17 15:00 70 16 102/60 (74) 96 12/13/17 14:00 73 18 106/54 (71) 96 12/13/17 13:00 78 20 98/56 (70) 98 12/13/17 12:00 Room Air Room Air 12/13/17 12:00 80 12/13/17 12:00 99.4 79 12 100/52 (68) 98 12/13/17 11:17 99.4 12/13/17 11:00 74 21 92/52 (65) 96 12/13/17 10:34 70 14 98 Intake and Output 12/13/17 12/14/17 19:00 07:00 Intake Total 950 ml 1122.5 ml Output Total 1503 ml 1210 ml Balance -553 ml -87.5 ml Intake Oral 360 ml IV Total 950 ml 762.5 ml Output Urine Total 1480 ml 1200 ml Drainage Total 23 ml 10 ml # Voids 1 Laboratory Tests 12/13/17 15:45: White Blood Count 11.5H, Red Blood Count 2.85L, Hemoglobin 9.7L, Hematocrit 27.2L, Mean Corpuscular Volume 96, Mean Corpuscular Hemoglobin 34.1H, Mean Corpuscular Hemoglobin Concent 35.7, Red Cell Distribution Width 11.0L, Platelet Count 159, Mean Platelet Volume 7.9, Neutrophils (%) (Auto) 63.7, Lymphocytes (%) (Auto) 25.2, Monocytes (%) (Auto) 7.9, Eosinophils (%) (Auto) 2.5, Basophils (%) (Auto) 0.6 12/14/17 06:45: White Blood Count 11.0H, Red Blood Count 2.96L, Hemoglobin 9.5L, Hematocrit 28.2L, Mean Corpuscular Volume 95, Mean Corpuscular Hemoglobin 32.2H, Mean Corpuscular Hemoglobin Concent 33.8, Red Cell Distribution Width 11.1L, Platelet Count 157, Mean Platelet Volume 7.7, Neutrophils (%) (Auto) 68.4, Lymphocytes (%) (Auto) 20.0, Monocytes (%) (Auto) 7.8, Eosinophils (%) (Auto) 3.3H, Basophils (%) (Auto) 0.5, Erythrocyte Sedimentation Rate 63H, Sodium Level 138, Potassium Level 3.3L, Chloride Level 104, Carbon Dioxide Level 27, Anion Gap 7, Blood Urea Nitrogen 11, Creatinine 0.6, Estimat Glomerular Filtration Rate > 60, Glucose Level 87, Calcium Level 8.1L, Phosphorus Level 2.4L, Magnesium Level 1.7L, Total Bilirubin 0.7, Direct Bilirubin 0.1, Aspartate Amino Transf (AST/SGOT) 38H, Alanine Aminotransferase (ALT/SGPT) 79H, Alkaline Phosphatase 121H, C-Reactive Protein, Quantitative 2.9H, Total Protein 5.9L, Albumin 2.8L, Globulin 3.5, Albumin/Globulin Ratio 0.8L, Hepatitis A IgM Antibody [Pending], Hepatitis B Surface Antigen [Pending], Hepatitis B Core IgM Antibody [Pending], Hepatitis C Antibody [Pending] Height (Feet): 5 Height (Inches): 1.00 Weight (Pounds): 136 Objective s/p evacuation of face and neck hematoma-no hematoma present this AM. JPs with s /s output minimal. facial skin with eccymosis and swelling but much improved over yesterday. all incisions C/D/I Jeison Henley MD Dec 14, 2017 10:29
[2017-12-14 11:25] VITALS: BP 105/67
--- NOTE | 2017-12-14 12:31 | Diagnostic Imaging Report ---
Indication: Dyspnea Comparison: 12/12/2017 A single view chest radiograph was obtained. Findings: There is mild atelectasis at the lung bases. Lung volumes are low. Heart size is accentuated. Bones are osteopenic. IMPRESSION: Basilar atelectasis.
--- NOTE | 2017-12-14 12:57 | General Progress Note ---
Assessment/Plan Problem List: (1) Post-operative infection ICD Codes: T81.4XXA - Infection following a procedure, initial encounter SNOMED: 85177980 Qualifiers: Qualified Codes: T81.4XXA - Infection following a procedure, initial encounter (2) Encounter for generalized patient complaints ICD Codes: Z00.8 - Encounter for other general examination SNOMED: 397670487 (3) Fever ICD Codes: R50.9 - Fever, unspecified SNOMED: 705914756 (4) Postoperative hematoma SNOMED: 832559529 (5) Facial hematoma ICD Codes: S00.83XA - Contusion of other part of head, initial encounter SNOMED: 463560777 Status: unchanged Assessment/Plan wound care abx id and sx f/u cbc bmp am dc plan Subjective Constitutional: Reports: weakness Allergies: Coded Allergies: No Known Allergies (Unverified , 12/12/17) All Systems: reviewed and negative except above Subjective calm in bed sl gen pain Objective Last 24 Hour Vital Signs Date Time Temp Pulse Resp B/P (MAP) Pulse Ox O2 Delivery O2 Flow Rate FiO2 12/14/17 11:25 99.8 81 20 105/67 (80) 94 12/14/17 08:12 Room Air 12/14/17 08:09 100.1 82 18 128/69 (88) 12/14/17 08:06 128/69 12/14/17 04:17 99.2 80 18 127/65 (85) 96 12/13/17 23:53 98.9 72 18 98/57 (71) 94 12/13/17 21:00 Room Air 12/13/17 20:41 99.4 72 16 97/48 (64) 97 12/13/17 18:10 99.4 12/13/17 17:00 99.8 84 18 106/59 (75) 95 12/13/17 16:00 75 17 110/52 (71) 96 12/13/17 16:00 73 12/13/17 16:00 Room Air Room Air 12/13/17 15:00 70 16 102/60 (74) 96 12/13/17 14:00 73 18 106/54 (71) 96 12/13/17 13:00 78 20 98/56 (70) 98 Intake and Output 12/13/17 12/14/17 19:00 07:00 Intake Total 950 ml 1122.5 ml Output Total 1503 ml 1210 ml Balance -553 ml -87.5 ml Intake Oral 360 ml IV Total 950 ml 762.5 ml Output Urine Total 1480 ml 1200 ml Drainage Total 23 ml 10 ml # Voids 1 Laboratory Tests 12/13/17 15:45: White Blood Count 11.5H, Red Blood Count 2.85L, Hemoglobin 9.7L, Hematocrit 27.2L, Mean Corpuscular Volume 96, Mean Corpuscular Hemoglobin 34.1H, Mean Corpuscular Hemoglobin Concent 35.7, Red Cell Distribution Width 11.0L, Platelet Count 159, Mean Platelet Volume 7.9, Neutrophils (%) (Auto) 63.7, Lymphocytes (%) (Auto) 25.2, Monocytes (%) (Auto) 7.9, Eosinophils (%) (Auto) 2.5, Basophils (%) (Auto) 0.6 12/14/17 06:45: White Blood Count 11.0H, Red Blood Count 2.96L, Hemoglobin 9.5L, Hematocrit 28.2L, Mean Corpuscular Volume 95, Mean Corpuscular Hemoglobin 32.2H, Mean Corpuscular Hemoglobin Concent 33.8, Red Cell Distribution Width 11.1L, Platelet Count 157, Mean Platelet Volume 7.7, Neutrophils (%) (Auto) 68.4, Lymphocytes (%) (Auto) 20.0, Monocytes (%) (Auto) 7.8, Eosinophils (%) (Auto) 3.3H, Basophils (%) (Auto) 0.5, Erythrocyte Sedimentation Rate 63H, Sodium Level 138, Potassium Level 3.3L, Chloride Level 104, Carbon Dioxide Level 27, Anion Gap 7, Blood Urea Nitrogen 11, Creatinine 0.6, Estimat Glomerular Filtration Rate > 60, Glucose Level 87, Calcium Level 8.1L, Phosphorus Level 2.4L, Magnesium Level 1.7L, Total Bilirubin 0.7, Direct Bilirubin 0.1, Aspartate Amino Transf (AST/SGOT) 38H, Alanine Aminotransferase (ALT/SGPT) 79H, Alkaline Phosphatase 121H, C-Reactive Protein, Quantitative 2.9H, Total Protein 5.9L, Albumin 2.8L, Globulin 3.5, Albumin/Globulin Ratio 0.8L, Hepatitis A IgM Antibody [Pending], Hepatitis B Surface Antigen [Pending], Hepatitis B Core IgM Antibody [Pending], Hepatitis C Antibody [Pending] Height (Feet): 5 Height (Inches): 1.00 Weight (Pounds): 136 General Appearance: lethargic EENT: normal ENT inspection Neck: normal alignment Cardiovascular: normal peripheral pulses, normal rate, regular rhythm Respiratory/Chest: chest wall non-tender, lungs clear, normal breath sounds Abdomen: normal bowel sounds, non tender, soft Extremities: normal inspection Edema: no edema noted Arm (L), no edema noted Arm (R), no edema noted Leg (L), no edema noted Leg (R), no edema noted Pedal (L), no edema noted Pedal (R), no edema noted Generalized Objective sl facial swelling, sl drain w viscous red fluis in bulb Shyam Bejarano DO Dec 14, 2017 12:57
[2017-12-14] MEDS ORDERED: LR 1000ml ONE (14:14)
[2017-12-14 15:41] VITALS: BP 102/61
[2017-12-14] MEDS: Norco 5mg/325mg tab ORAL PRN (16:17)
[2017-12-14] MEDS ORDERED: Potassium Chloride 40 MEQ in Sodium Chloride 500ML 550 ML IVPB ONE (17:00)
[2017-12-14 20:19] VITALS: BP 123/63
[2017-12-15 00:16] VITALS: BP 116/60
[2017-12-15] MEDS: Norco 5mg/325mg tab ORAL PRN ×3 (03:38→13:14)
[2017-12-15 04:26] VITALS: BP 130/69
[2017-12-15] MEDS: ceFAZolin 2gm/50ml Premix 50 ML IV SCH ×2 (05:47→13:14)
[2017-12-15 07:12] LABS: BASOPHILS % (AUTO) 0.5 % (0.0-2.0); EOSINOPHILS % (AUTO) 3.2 % (0.0-3.0); HEMOGLOBIN 9.5 G/DL (12.0-16.0); LYMPHOCYTES % (AUTO) 19.1 % (20.0-45.0); MEAN CORPUSCULAR VOLUME 92 FL (80-99); MONOCYTES % (AUTO) 8.6 % (1.0-10.0); NEUTROPHILS % (AUTO) 68.5 % (45.0-75.0); PLATELET COUNT 178 K/UL (150-450); RED BLOOD COUNT 2.93 M/UL (4.20-5.40); RED CELL DISTRIBUTION WIDTH 10.6 % (11.6-14.8); WHITE BLOOD COUNT 10.2 K/UL (4.8-10.8)
[2017-12-15 07:35] LABS: ALANINE AMINOTRANSFERASE 54 U/L (12-78); ALBUMIN 2.7 G/DL (3.4-5.0); ALBUMIN/GLOBULIN RATIO 0.7 (1.0-2.7); ALKALINE PHOSPHATASE 103 U/L (46-116); ANION GAP 8 mmol/L (5-15); ASPARTATE AMINO TRANSFERASE 22 U/L (15-37); BLOOD UREA NITROGEN 8 mg/dL (7-18); CALCIUM 8.6 MG/DL (8.5-10.1); CARBON DIOXIDE 26 MMOL/L (21-32); CHLORIDE 102 MMOL/L (98-107); CREATININE 0.5 MG/DL (0.55-1.30); PHOSPHORUS 3.4 MG/DL (2.5-4.9); POTASSIUM 3.7 MMOL/L (3.5-5.1); SODIUM 136 MMOL/L (136-145)
[2017-12-15 08:00] VITALS: BP 114/63
[2017-12-15] MEDS: Docusate 100mg cap ORAL SCH ×2 (08:13→13:14)
[2017-12-15] MEDS: Lisinopril 20mg tab ORAL SCH (08:13)
[2017-12-15 12:00] VITALS: BP 108/59
--- NOTE | 2017-12-15 13:37 | General Progress Note ---
Assessment/Plan Problem List: (1) Post-operative infection ICD Codes: T81.4XXA - Infection following a procedure, initial encounter SNOMED: 38350947 Qualifiers: Qualified Codes: T81.4XXA - Infection following a procedure, initial encounter (2) Encounter for generalized patient complaints ICD Codes: Z00.8 - Encounter for other general examination SNOMED: 191839235 (3) Fever ICD Codes: R50.9 - Fever, unspecified SNOMED: 614947221 (4) Postoperative hematoma SNOMED: 606993246 (5) Facial hematoma ICD Codes: S00.83XA - Contusion of other part of head, initial encounter SNOMED: 137537879 Status: stable, progressing Assessment/Plan wound care abx id and sx f/u cbc bmp am dc if clear Subjective Constitutional: Reports: weakness Allergies: Coded Allergies: No Known Allergies (Unverified , 12/12/17) All Systems: reviewed and negative except above Subjective calm in bed sl gen pain Objective Last 24 Hour Vital Signs Date Time Temp Pulse Resp B/P (MAP) Pulse Ox O2 Delivery O2 Flow Rate FiO2 12/15/17 12:00 98.6 72 18 108/59 (75) 98 12/15/17 09:00 Room Air 12/15/17 08:13 114/63 12/15/17 08:00 96.4 80 16 114/63 (80) 94 12/15/17 04:26 98.2 77 18 130/69 (89) 95 12/15/17 00:16 99.6 78 17 116/60 (78) 97 12/14/17 21:00 Room Air 12/14/17 20:19 99.6 80 18 123/63 (83) 97 12/14/17 17:52 100.4 12/14/17 15:41 100.8 77 20 102/61 (75) 96 Intake and Output 12/14/17 12/15/17 19:00 07:00 Intake Total 1280 ml 410 ml Balance 1280 ml 410 ml Intake Oral 1280 ml 360 ml IV Total 50 ml # Voids 3 5 # Bowel Movements 6 Laboratory Tests 12/15/17 06:25: White Blood Count 10.2, Red Blood Count 2.93L, Hemoglobin 9.5L, Hematocrit 27.0L , Mean Corpuscular Volume 92, Mean Corpuscular Hemoglobin 32.3H, Mean Corpuscular Hemoglobin Concent 35.0, Red Cell Distribution Width 10.6L, Platelet Count 178, Mean Platelet Volume 8.3, Neutrophils (%) (Auto) 68.5, Lymphocytes (%) (Auto) 19.1L, Monocytes (%) (Auto) 8.6, Eosinophils (%) (Auto) 3.2H, Basophils (%) (Auto) 0.5, Sodium Level 136, Potassium Level 3.7, Chloride Level 102, Carbon Dioxide Level 26, Anion Gap 8, Blood Urea Nitrogen 8, Creatinine 0.5L, Estimat Glomerular Filtration Rate > 60, Glucose Level 102, Calcium Level 8.6, Phosphorus Level 3.4, Magnesium Level 2.0, Total Bilirubin 1.0, Aspartate Amino Transf (AST/SGOT) 22, Alanine Aminotransferase (ALT/SGPT) 54, Alkaline Phosphatase 103, Total Protein 6.6, Albumin 2.7L, Globulin 3.9, Albumin/Globulin Ratio 0.7L Height (Feet): 5 Height (Inches): 1.00 Weight (Pounds): 137 General Appearance: alert EENT: normal ENT inspection Neck: normal alignment Cardiovascular: normal peripheral pulses, normal rate, regular rhythm Respiratory/Chest: chest wall non-tender, lungs clear, normal breath sounds Abdomen: normal bowel sounds, non tender, soft Extremities: normal inspection Edema: no edema noted Arm (L), no edema noted Arm (R), no edema noted Leg (L), no edema noted Leg (R), no edema noted Pedal (L), no edema noted Pedal (R), no edema noted Generalized Neurologic: responsive, motor weakness Skin: normal pigmentation, warm/dry Objective sl facial swelling, sl drain w viscous red fluid in bulb Shyam Bejarano DO Dec 15, 2017 13:37
--- NOTE | 2017-12-15 15:17 | Infectious Diseases Prog Note ---
Assessment/Plan Assessment/Plan ASSESSMENT: The patient is a 67-year-old female with Low grade fever nl WBC Transaminitis (hepatitis: panel) sp Facial hematoma as per PlSx,: no evid. of infection Hypertension history of breast implant Sp Face-lift PLAN: continue the patient on IV Ancef d# 4, ok to Dc on Keflex x 1 wk Monitor CBC Monitor BMP. Monitor cultures (Bl, Ur) Hepatitis double end trimmer liver function tests. CXR Subjective Allergies: Coded Allergies: No Known Allergies (Unverified , 12/12/17) Subjective Fever improving comfortably Objective Vital Signs Last 24 Hour Vital Signs Date Time Temp Pulse Resp B/P (MAP) Pulse Ox O2 Delivery O2 Flow Rate FiO2 12/15/17 12:00 98.6 72 18 108/59 (75) 98 12/15/17 09:00 Room Air 12/15/17 08:13 114/63 12/15/17 08:00 96.4 80 16 114/63 (80) 94 12/15/17 04:26 98.2 77 18 130/69 (89) 95 12/15/17 00:16 99.6 78 17 116/60 (78) 97 12/14/17 21:00 Room Air 12/14/17 20:19 99.6 80 18 123/63 (83) 97 12/14/17 17:52 100.4 12/14/17 15:41 100.8 77 20 102/61 (75) 96 Height (Feet): 5 Height (Inches): 1.00 Weight (Pounds): 137 HEENT: anicteric Respiratory/Chest: no respiratory distress Cardiovascular: normal rate Abdomen: no organomegaly Laboratory Tests Test 12/15/17 06:25 White Blood Count 10.2 K/UL (4.8-10.8) Red Blood Count 2.93 M/UL (4.20-5.40) L Hemoglobin 9.5 G/DL (12.0-16.0) L Hematocrit 27.0 % (37.0-47.0) L Mean Corpuscular Volume 92 FL (80-99) Mean Corpuscular Hemoglobin 32.3 PG (27.0-31.0) H Mean Corpuscular Hemoglobin Concent 35.0 G/DL (32.0-36.0) Red Cell Distribution Width 10.6 % (11.6-14.8) L Platelet Count 178 K/UL (150-450) Mean Platelet Volume 8.3 FL (6.5-10.1) Neutrophils (%) (Auto) 68.5 % (45.0-75.0) Lymphocytes (%) (Auto) 19.1 % (20.0-45.0) L Monocytes (%) (Auto) 8.6 % (1.0-10.0) Eosinophils (%) (Auto) 3.2 % (0.0-3.0) H Basophils (%) (Auto) 0.5 % (0.0-2.0) Sodium Level 136 MMOL/L (136-145) Potassium Level 3.7 MMOL/L (3.5-5.1) Chloride Level 102 MMOL/L (98-107) Carbon Dioxide Level 26 MMOL/L (21-32) Anion Gap 8 mmol/L (5-15) Blood Urea Nitrogen 8 mg/dL (7-18) Creatinine 0.5 MG/DL (0.55-1.30) L Estimat Glomerular Filtration Rate > 60 mL/min (>60) Glucose Level 102 MG/DL (74-106) Calcium Level 8.6 MG/DL (8.5-10.1) Phosphorus Level 3.4 MG/DL (2.5-4.9) Magnesium Level 2.0 MG/DL (1.8-2.4) Total Bilirubin 1.0 MG/DL (0.2-1.0) Aspartate Amino Transf (AST/SGOT) 22 U/L (15-37) Alanine Aminotransferase (ALT/SGPT) 54 U/L (12-78) Alkaline Phosphatase 103 U/L (46-116) Total Protein 6.6 G/DL (6.4-8.2) Albumin 2.7 G/DL (3.4-5.0) L Globulin 3.9 g/dL Albumin/Globulin Ratio 0.7 (1.0-2.7) L Hayes Seaman MD Dec 15, 2017 15:17
--- NOTE | 2017-12-16 13:57 | Discharge Summary ---
Discharge Summary Discharge Summary _ DATE OF ADMISSION: 12/12/2017 DATE OF DISCHARGE: 12/15/2017 CONSULTANTS: Dr. Jeison Lagunas BRIEF HOSPITAL COURSE: Patient is a 67-year-old female, who lives at home, status post face lift. Apparently face started to swell up and had fever and draining pus coming out from the drainage tube. She also felt nauseated. Pain was 10 out of 10. She initially presented to the surgeon's office who sent her to ED to have revision and drainage. She denied any chest pain, no cough, no vomiting or diarrhea. She has medical history significant for hypertension. On evaluation at ED, vital signs were stable. Blood work was normal. She had elevated LFTs. EKG was in normal sinus rhythm with no acute changes. Chest x- ray showed low lung volumes with mild linear/subsegmental atelectasis in the left lung base. She was then admitted for surgical evacuation of hematoma and control of bleeding. She underwent evacuation and irrigation of facial and neck hematoma by Dr. Henley. At the end of the procedure, patient was left intubated and transferred to ICU for monitoring. She was given post-care. She was followed by dispatcher refinery. She had low-grade fever. She was seen by ID. She was started on IV Ancef. She was eventually weaned off the ventilator and was extubated the following day. She was transferred to the floor. She was encouraged use of incentive spirometer. Diet was advanced as tolerated. Patient was ambulating well. Blood culture did not isolate any growth. Patient was afebrile and vital signs were stable. Patient was discharged home with MADONNA drain. To follow up with Dr. Henley on 09/2017 at 10 AM. FINAL DIAGNOSES: Recent face lift with recurrent face and neck hematoma Status post evacuation and irrigation of facial and neck hematoma Postop fever Postoperative hematoma Postoperative infection DISPOSITION: Patient was discharged home. DISCHARGE MEDICATIONS: Refer to Discharge Medication List. DISCHARGE INSTRUCTIONS: Follow up with Dr. Henley. I have been assigned to dictate discharge summary on this account, and I was not involved in the patient's management. Vanna Ott NP Dec 16, 2017 13:57
== END 2017-12-15 15:00 | disposition home or self-care (01) | DRG 920 ==
LOC: EMR 11:40 → EDBEDREQ 12:07 → SUR 12:35 → EDBEDREQ 12:46 → ICU 15:30 → 3E 12-13 16:56
PROC: 0JC10ZZ Extirpation of Matter from Face Subcutaneous Tissue and Fascia, Open Approach (ICD-10-PCS; principal; 2017-12-12 13:30)
PROC: 0JC40ZZ Extirpation of Matter from Right Neck Subcutaneous Tissue and Fascia, Open Approach (ICD-10-PCS; principal; 2017-12-12 13:30)
DX: L76.31 Postprocedural hematoma of skin and subcutaneous tissue following a dermatologic procedure (principal); T81.40XA Infection following a procedure, unspecified, initial encounter; Y83.8 Other surgical procedures as the cause of abnormal reaction of the patient, or of later complication, without mention of misadventure at the time of the procedure; I10 Essential (primary) hypertension; R74.0 Nonspecific elevation of levels of transaminase and lactic acid dehydrogenase [LDH]
CPT/HCPCS: 36415; 71045; 80048; 80053; 80076; 82248; 82550; 83605; 83735; 83880; 84100; 84484; 85025; 85610; 85651; 85730; 86140; 86705; 86709; 86803; 86850; 86900; 86901; 87040; 87340; 93005; 94002; 94003; 94150; 96361; 96365; 96375; 99285; J2370; J2405; J2765